=== PATIENT | female | born 1965 | race Caucasian/White ===

== ENCOUNTER 2017-02-24 14:52 | Emergency (ER) | payer MEDICAID ==
[2017-02-24] MEDS ORDERED: KETOROLAC 30 MG/ML VIAL IM ONE (15:12)
--- NOTE | 2017-02-24 15:17 | Emergency Department Record ---
History of Present Illness - General Chief complaint: Pain Stated complaint: RT SHOULDER PAIN Time Seen by Provider: 02/24/17 15:05 Source: Patient Mode of Arrival: Ambulatory Limitations: No limitations - History of Present Illness Initial comments: The patient is here due to worsening R shoulder pain for 5 weeks. She has a hx of chronic pain to the shoulders bilaterally and did have injections to the R posterior shoulder on Jan 17. She initially did better but then on Jan 20 the pain returned. Now she is having trouble with ROM and the pain does radiate to the R elbow at times. She denies any fever, chills, or trauma. MD Complaint: Extremity pain, Joint pain Onset/Timin -: Month(s) Location: Right, Shoulder Severity scale (1-10): 9 Quality: Sharp Consistency: Constant Improves with: Nothing Worsens with: Nothing - Related Data Previous Rx's Medication Instructions Recorded Naproxen [Naprosyn] 375 mg PO BID #15 tablet 09/09/13 Azithromycin [Zithromax] 250 mg PO DAILY #4 tab 03/22/15 Promethazine HCl/Codeine 5 - 10 ml PO .AT BEDTIME PRN #118 03/22/15 [Phenergan W/Codeine] ml Lidocaine Patch [Lidoderm] 1 ea TOP DAILY #7 patch 02/24/17 Allergies Allergy/AdvReac Type Severity Reaction Status Date / Time No Known Drug Allergies Allergy Verified 05/14/15 10:32 Travel Screening - Travel/Exposure Within Last 30 Days Have you traveled within the last 30 days?: No Review of Systems Constitutional: Denies: Chills, Fever Eyes: Denies: Eye discharge ENT: Denies: Congestion Respiratory: Denies: Cough Past Medical History - SOCIAL HISTORY Smoking Status: Former smoker Alcohol Use: None Drug Use: None - RESPIRATORY Hx Respiratory Disorders: Yes Hx Asthma: Yes - CARDIOVASCULAR Hx Cardio Disorders: No - NEURO Hx Neuro Disorders: Yes Hx Dizziness: Yes - GI Hx GI Disorders: Yes Hx Reflux: Yes Hx Irritable Bowel: Yes - Hx Genitourinary Disorders: No - ENDOCRINE Hx Endocrine Disorders: No Hx Diabetes: No Hx Thyroid Disease: No - MUSCULOSKELETAL Hx Back Injury: Yes - PSYCH Hx Psych Problems: Yes Hx Anxiety: Yes Hx Depression: Yes - HEMATOLOGY/ONCOLOGY Hx Hematology/Oncology Disorders: Yes Hx Anemia: Yes Family Medical History Any Significant Family History?: Yes Hx Diabetes: Father, Mother Physical Exam - General General Appearance: Alert, Oriented x3, Cooperative, No acute distress - Head Head exam: Atraumatic, Normocephalic, Normal inspection - Eye Eye exam: Normal appearance, PERRL - Extremities Extremities exam: Normal inspection (There is no bruising, erythema, or warmth appreciated.), Tenderness (There is diffuse anterior and lateral R shoulder tenderness.). negative: Full ROM (There is decreased full ROM of the R shoulder due to pain. She is able to abduct to 90 degrees.), Normal capillary refill - Neurological Neurological exam: Alert. negative: Motor sensory deficit Course Vital Signs 02/24/17 15:00 Temperature 97.7 F Pulse Rate 85 Respiratory 98 H Rate Blood Pressure 170/99 Pulse Ox 16 L - Reevaluation(s) Reevaluation #1: The patient is resting comfortably. I did explain to her that the xray does appear WNL's and the need for F/U. 02/24/17 15:39 Medical Decision Making - Data Complexity MDM Data: X-Ray Ordered and/or Reviewed - Radiology Data Radiology results: Report reviewed (R shoulder: spurring at AC joint, O/W neg per rad.) Disposition Disposition: Discharge Clinical Impression: Chronic shoulder pain Qualifiers: Laterality: right Qualified Code(s): M25.511 - Pain in right shoulder Disposition: Home, Self-Care Condition: (2) Stable Instructions: Chronic Pain (ED) Additional Instructions: Please use the R arm sling for 7 days only. Use ice to the shoulder. Take the Lidoderm patches as directed. Please see your PCP next week if not better. Prescriptions: Lidocaine Patch [Lidoderm] 1 ea TOP DAILY #7 patch Forms: Patient Portal Access Time of Disposition: 15:42 Quality - Quality Measures Quality Measures: N/A - Blood Pressure Screening View Details: Yes Does Patient Have Any of the Following: No, Active Dx of HTN Blood Pressure Classification: Hypertensive Reading Systolic Measurement: 170 Diastolic Measurement: 99 Screening for High Blood Pressure: Patient Exclusion, Hx of HTN [G9744]
--- NOTE | 2017-02-25 14:17 | RADIOLOGY REPORT ---
EXAM: RIGHT SHOULDER, THREE VIEWS HISTORY: RIGHT SHOULDER PAIN, PATIENT STATES SHE HAS TORN TENDONS IN BOTH SHOULDERS. TECHNIQUE: Three views of the right shoulder were obtained. Comparison: No prior right shoulder series. FINDINGS: There is some spurring at the acromioclavicular joint. The glenohumeral joint appears essentially negative. No fracture or dislocation evident. IMPRESSION: SPURRING AT THE ACROMIOCLAVICULAR JOINT. JOB NUMBER: [id number] [facility]
== END 2017-02-24 16:20 | disposition home or self-care (01) ==
LOC: ER 14:52
DX: G89.29 Other chronic pain (principal); M25.511 Pain in right shoulder
CPT/HCPCS: 99283 ×2; 96372; 73030; J1885

== ENCOUNTER 2018-03-02 15:12 | Emergency (ER) | payer MEDICAID ==
[2018-03-02] MEDS ORDERED: PREDNISONE 20 MG TAB PO ONE (15:26)
[2018-03-02] MEDS ORDERED: IPRATROPIUM/ALBUTEROL (0.5MG/3MG) NEB INH ONE (15:26)
--- NOTE | 2018-03-02 15:32 | Emergency Department Record ---
History of Present Illness - General Chief complaint: Cold Stated complaint: CHEST COLD Time Seen by Provider: 03/02/18 15:25 Source: Patient Mode of Arrival: Ambulatory Limitations: No limitations - History of Present Illness Initial comments: 52 yo female presents with a cough since Tuesday. She has thick sputum, aches and fevers. She smokes and has underlying asthma. She has associated sore throat. She states it hurts to cough. She was on Clindamycin for a recent dental infection. No NVD. No rash or edema. She is also concerned about her right wrist. 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 She has carpel tunnel in the left wrist. MD complaint: Sore throat, Other (Cough) -: Hour(s) (4) Severity: Moderate Quality: Aching Consistency: Constant Worsens with: Other (Coughing) Context-Epistaxis: History of similar Context- Dental: Other - Related Data Previous Rx's Medication Instructions Recorded Azithromycin [Zithromax] 250 mg PO DAILY #6 tablet 03/02/18 Benzonatate [Tessalon Perle] 100 mg PO Q8H #20 capsule 03/02/18 Prednisone [Prednisone 20Mg] 20 mg PO BID #10 tab 03/02/18 Allergies Allergy/AdvReac Type Severity Reaction Status Date / Time No Known Drug Allergies Allergy Verified 05/14/15 10:32 Review of Systems Constitutional: Reports: Chills, Fever, Malaise Eyes: Denies: Eye discharge, Eye pain, Photophobia, Vision change ENT: Reports: Congestion, Throat pain Respiratory: Reports: Cough, Wheezes. Denies: Dyspnea Cardiovascular: Denies: Chest pain, Palpitations, Syncope Endocrine: Reports: Fatigue. Denies: Polydipsia, Polyuria Gastrointestinal: Denies: Abdominal pain, Diarrhea, Nausea, Vomiting Genitourinary: Denies: Dysuria, Urgency Musculoskeletal: Reports: As per HPI, Arthralgia. Denies: Back pain, Neck pain Skin: Denies: Bruising, Change in color, Rash Neurological: Denies: Confusion, Headache, Numbness, Weakness Psychiatric: Denies: Anxiety Hematological/Lymphatic: Denies: Blood Clots, Easy bleeding, Easy bruising, Swollen glands Past Medical History - SOCIAL HISTORY Smoking Status: Former smoker Drug Use: None - RESPIRATORY Hx Respiratory Disorders: Yes Hx Asthma: Yes - CARDIOVASCULAR Hx Cardio Disorders: No - NEURO Hx Neuro Disorders: Yes Hx Dizziness: Yes - GI Hx GI Disorders: Yes Hx Reflux: Yes Hx Irritable Bowel: Yes - Hx Genitourinary Disorders: No - ENDOCRINE Hx Endocrine Disorders: No Hx Diabetes: No Hx Thyroid Disease: No - MUSCULOSKELETAL Hx Back Injury: Yes - PSYCH Hx Psych Problems: Yes Hx Anxiety: Yes Hx Depression: Yes - HEMATOLOGY/ONCOLOGY Hx Hematology/Oncology Disorders: Yes Hx Anemia: Yes Family Medical History Hx Diabetes: Father, Mother Physical Exam - General General Appearance: Alert, Oriented x3, Cooperative, No acute distress Limitations: No limitations - Head Head exam: Atraumatic, Normal inspection - Eye Eye exam: Normal appearance, PERRL. negative: Conjunctival injection, Scleral icterus - ENT ENT exam: Normal exam, Mucous membranes moist, Normal orophraynx Ear exam: Normal external inspection Nasal Exam: Discharge Mouth exam: Normal external inspection Teeth exam: Normal inspection Throat exam: Tonsillar erythema. negative: Tonsillomegaly, Tonsillar exudate, R peritonsillar mass, L peritonsillar mass - Neck Neck exam: Normal inspection, Full ROM, Lymphadenopathy (few anterior scattered lymph nodes). negative: Tenderness - Respiratory Respiratory exam: Decreased breath sounds, Prolonged expiratory, Rhonchi, Wheezes. negative: Accessory muscle use, Chest wall tenderness, Rales, Respiratory distress, Stridor - Cardiovascular Cardiovascular Exam: Regular rate, Normal rhythm, Normal heart sounds Peripheral Pulses: 2+: Radial (R), Radial (L) - GI/Abdominal GI/Abdominal exam: Soft. negative: Tenderness - Rectal Rectal exam: Deferred - exam: Deferred - Extremities Extremities exam: Normal inspection, Normal capillary refill, Tenderness. negative: Joint swelling Image of Full Body: 1 - normal inspection, no warmth or redness, no swellling, - Back Back exam: Denies: CVA tenderness (R), CVA tenderness (L) - Neurological Neurological exam: Alert, Normal gait, Oriented X3. negative: Motor sensory deficit - Psychiatric Psychiatric exam: Normal affect, Normal mood. negative: Agitated, Anxious - Skin Skin exam: Dry, Intact, Normal color, Warm Course - Reevaluation(s) Reevaluation #1: Vitals were reviewed. No fever or hypoxia 03/02/18 15:38 03/02/18 16:00 The influenza swabs are negative. She is out of the treatment window for Tamiflu. It was done for information. The CXR was negative Disposition Disposition: Discharge Clinical Impression: Bronchitis, Asthma exacerbation, Right wrist sprain Disposition: Home, Self-Care Condition: (1) Good Instructions: COPD (Chronic Obstructive Pulmonary Disease) (ED) Additional Instructions: Take the prescriptions as directed Return if worse, fever, short of breath or any other concerns Call your doctor for a recheck in the next 2-3 days Prescriptions: Azithromycin [Zithromax] 250 mg PO DAILY #6 tablet Benzonatate [Tessalon Perle] 100 mg PO Q8H #20 capsule Prednisone [Prednisone 20Mg] 20 mg PO BID #10 tab Forms: Patient Portal Access Time of Disposition: 16:06 Quality - Quality Measures Quality Measures: N/A - Blood Pressure Screening Does Patient Have Any of the Following: No Blood Pressure Classification: Hypertensive Reading Systolic Measurement: 148 Diastolic Measurement: 74 Screening for High Blood Pressure: < Pre-Hypertensive BP, F/U Documented > [ G8950] Pre-Hypertensive Follow-up Interventions: Referral to alternative/primary care provider.
[2018-03-02 15:58] LABS: INFLUENZA A NEGATIVE (NEGATIVE); INFLUENZA B NEGATIVE (NEGATIVE)
--- NOTE | 2018-03-04 21:34 | RADIOLOGY REPORT ---
EXAM: CHEST 2 VIEWS HISTORY: COUGH AND BODY ACHES FOR ONE WEEK. TECHNIQUE: Upright PA and lateral views of the chest. COMPARISON: Two-view chest radiographic examination dated 03/22/2015. FINDINGS: The heart is not enlarged and the pulmonary vasculature is nondilated. No confluent air-space opacity is seen, or is there costophrenic angle blunting or pneumothorax. Relative increased opacity contiguous with the cardiac apex likely relates to a pericardial fat pad. The osseous structures are intact. IMPRESSION: NO RADIOGRAPHIC EVIDENCE OF ACUTE CARDIOPULMONARY DISEASE. [facility]BER: [id number] [facility]
== END 2018-03-02 16:30 | disposition home or self-care (01) ==
LOC: ER 15:12
DX: S63.501A Unspecified sprain of right wrist, initial encounter (principal); J45.901 Unspecified asthma with (acute) exacerbation; J20.9 Acute bronchitis, unspecified; X50.1XXA Overexertion from prolonged static or awkward postures, initial encounter; Z87.891 Personal history of nicotine dependence
CPT/HCPCS: 29125; 99283; 99284; 87400; 71046; 94640; J7512